=== PATIENT | female | born 1985 | race Caucasian/White ===

== ENCOUNTER 2021-08-28 21:35 | Emergency (ER) | payer OTHER ==
[~2021-08-28] VITALS: Ht 165 cm; Wt 101.6 kg
[2021-08-28 22:02] VITALS: BP 141/105
--- NOTE | 2021-08-28 22:28 | ED EENT ---
History of Present Illness General Chief Complaint: Laceration Stated Complaint: SOFTBALL TO L SIDE HEAD Nursing Triage Note: Pt arrives per POV w/ laceration to left upper cheek after being struck by a softball that took an odd bounce while pt was playing 2nd base. Bleeding controlled, but swelling very evident. Pt w/ ice pack to cheek. Ambulated to room. Source: patient Exam Limitations: no limitations (LAVONNE FLOREZ) History of Present Illness Date Seen by Provider: Aug 28, 2021 Time Seen by Provider: 22:24 Initial Comments Patient is a 36-year-old female presents ED with left-sided facial pain. Patient states that she was playing softball this evening. About 1 hour ago she was at second base when a ball took a bad hop on the ground hitting her left side of face below her left eye. She had immediate swelling and a 2 cm laceration below left eye. No pain with eye movement or difficulty with vision. She reports left naris bleeding without any nose pain, or difficulty breathing the nose. she is up-to-date her tetanus within the past 6 months. Bleeding controlled direct pressure. Denies loss of consciousness. Denies visual changes, sore throat, neck pain, chest pain, shortness of breath. (LAVONNE FLOREZ) Allergies and Home Medications Patient Home Medication List Home Medication List Reviewed: Yes (LENNOX TAYLOR MD) Amoxicillin/Potassium Clav (Amox Tr-K Clv 875-125 mg Tab) 875 Mg-125 Mg Tablet, 1 EACH PO BID Prescribed by: COLE FARRELL on 08/28/21 2743 Review of Systems Review of Systems Constitutional: No chills, No diaphoresis Eyes: Denies Blindness, Denies Blurred Vision, Denies Drainage, Denies Decreased Acuity; Other Ears: Denies Dizziness, Denies Pain, Denies Tinnitus Nose: denies clots, denies congestion Mouth: denies clots, denies loose teeth, denies bloody discharge, denies clear discharge Throat: denies pain, denies swelling Respiratory: No cough, No dyspnea on exertion Cardiovascular: No chest pain Musculoskeletal: No back pain, No joint pain Skin: change in color, other (Contusion to the left side of face below the left eye with a 2 similar laceration below the left periorbit) (LAVONNE FLOREZ) All Other Systems Reviewed Negative Unless Noted: Yes (LAVONNE FLOREZ) Physical Exam Vital Signs Vital Signs - First Documented 08/28/21 22:02 Temp 36.8 Pulse 102 Resp 20 B/P (MAP) 141/105 (117) Pulse Ox 96 O2 Delivery Room Air (LENNOX TAYLOR MD) Height, Weight, BMI Height: '" Weight: lbs. oz. kg; 37.00 BMI Method: General Appearance: WD/WN, no apparent distress Eyes: left eye other (Left periorbital swelling and bruising); bilateral eye normal inspection, bilateral eye PERRL, bilateral eye EOMI Ears: bilateral ear auricle normal, bilateral ear canal normal, bilateral ear TM normal Nose: other (Dried blood left nares. No evidence of nasal septal hematoma. No nasal bridge tenderness) Mouth/Throat: normal mouth inspection, pharynx normal, dental tenderness Neck: non-tender, full range of motion, supple, normal inspection Cardiovascular: regular rate, rhythm, no edema, no gallop Respiratory: chest non-tender, lungs clear, normal breath sounds Gastrointestinal: normal bowel sounds, non tender, soft, no organomegaly Neurologic/Psychiatric: log grader II-XII nml as tested, no motor/sensory deficits, alert Skin: other (2 cm laceration below left periorbit. No eyelid involvement. No eye involvement) (LAVONNE FLOREZ) Procedures/Interventions Wound Location: Face Other Wound Location left face Wound Length (cm): 2 Wound's Depth, Shape: superficial, sub Q Wound Explored: clean Irrigated w/ Saline (ccs): 200 Betadine Prep?: Yes Anesthesia: 1% Lidocaine Volume Anesthetic (ccs): 5 Wound Debrided: minimal Suture: Ethlion Suture Size: 5-0 Number of Sutures: 6 Layer Closure?: 1 Sterile Dressing Applied?: Yes (LAVONNE FLOREZ) Progress/Results/Core Measures Results/Orders Vital Signs/I&O 08/28/21 22:02 Temp 36.8 Pulse 102 Resp 20 B/P (MAP) 141/105 (117) Pulse Ox 96 O2 Delivery Room Air (LENNOX TAYLOR MD) Blood Pressure Mean: 117 Departure Communication (PCP) Patient is a 36-year-old female who presents ED injury to the left side of face. Acute appearing minimal displaced fractures involving the floor of the left orbit and anterior wall of the left maxillary sinus. No visual changes no difficulty breathing. No nasal septal hematoma. No evidence of orbital muscle entrapment. Patient lives in [place]. She states she will follow-up with ENT in [place]. 6 Ethilon 5-0 sutures were placed to the left face secondary to a 2 cm laceration below the left orbit. Remove sutures in 6 days. She does have a contusion overlying the left maxillary sinus. recommend ice for the next 2 to 3 days. Anti-inflammatories for pain. She is up-to-date on her tetanus. Will discharge with Augmentin prophylactically due to sinus involvement.. (LAVONNE FLOREZ) Impression Primary Impression: Facial fracture Disposition: 01 HOME, SELF-CARE Condition: Stable Departure-Patient Inst. Decision time for Depature: 22:58 (LAVONNE FLOREZ) Referrals: ANAYA MARS MD NO,LOCAL PHYSICIAN (PCP) Primary Care Physician Patient Instructions: Facial Fracture (DC) Add. Discharge Instructions: Recommend ice 2 or 3 times a day for the next 3 or 4 days. Augmentin prevent infection. Anti-inflammatories for pain. Recommend ENT outpatient follow-up 4 to 5 days for reevaluation. Remove sutures in 6 to 8 days. All discharge instructions reviewed with patient and/or family. Voiced under standing. Scripts Amoxicillin/Potassium Clav (Amox Tr-K Clv 875-125 mg Tab) 875 Mg-125 Mg Tablet 1 EACH PO BID for 7 Days, #14 TAB Prov: LAVONNE FLOREZ 08/28/21 ATTENDING PHYSICIAN NOTE: I was physically present as attending physician in the emergency department during the care of this patient, but I was not directly involved in the decision making or delivery of care for this patient. (LENNOX TAYLOR MD) LAVONNE FLOREZ Aug 28, 2021 22:28 LENNOX TAYLOR MD Aug 29, 2021 08:21
--- NOTE | 2021-08-28 22:53 | Diagnostic Imaging Report ---
PROCEDURE: CT head and maxillofacial without contrast. TECHNIQUE: Multiple contiguous axial images were obtained through the head and facial bones without the use of intravenous contrast. Auto Exposure Controls were utilized during the CT exam to meet ALARA standards for radiation dose reduction. INDICATION: Left-sided facial pain. Trauma. Struck by softball. COMPARISON: None. FINDINGS: No intracranial hemorrhage, mass effect, hydrocephalus or extra-axial fluid collection. No CT evidence of an acute territorial infarction. Soft tissue contusion overlying the left maxilla and orbit. Minimally displaced left orbital floor fracture. This is best seen on maxillofacial coronal image 30. There is also a minimally displaced fracture through the anterior wall of the left maxillary sinus medially. Mild mucosal thickening in the maxillary sinuses. The mastoids are clear. Normal alignment of the temporomandibular joints. IMPRESSION: 1. Acute appearing minimally displaced fractures involving the floor of the left orbit and anterior wall of the left maxillary sinus medially. 2. No acute intracranial CT findings. Dictated by: Dictated on workstation # [id number]
[2021-08-28] MEDS ORDERED: AMOX1TAB12 PO ×2 (22:59→23:05)
== END 2021-08-28 23:15 | disposition home or self-care (01) ==
LOC: ER 21:37
DX: S02.32XA Fracture of orbital floor, left side, initial encounter for closed fracture (principal); S02.40DA Maxillary fracture, left side, initial encounter for closed fracture; W21.07XA Struck by softball, initial encounter; Y93.64 Activity, baseball
CPT/HCPCS: 70450; 70486